=== PATIENT | male | born 1940 | race Caucasian/White ===

== ENCOUNTER 2017-08-27 06:40 | Day surgery (SDC) | payer MEDICARE, BC ==
[~2017-08-27] VITALS: Ht 167.6 cm; Wt 83.5 kg
[~2017-08-27 06:40] MED LIST: FLUSAL1005 IH; Icaps Areds Fo1 EACH; MAGOXI400; NAPR220; TAMS.4ER; VITAMIN D32000 UNIT PO
== END 2017-08-27 09:39 | disposition home or self-care (01) ==
LOC: ORSCSDS 06:40
PROVIDERS: Orthopaedic Surgery
PROC: 01S40ZZ Reposition Ulnar Nerve, Open Approach (ICD-10-PCS; principal; 2017-08-27 08:00)
DX: G56.22 Lesion of ulnar nerve, left upper limb (principal); Z87.891 Personal history of nicotine dependence
CPT/HCPCS: J0690; J1100; J2250; J2370; J2405; J3010

== ENCOUNTER 2018-08-25 12:28 | Inpatient (IN) | payer MEDICARE, BC ==
[~2018-08-25] VITALS: Ht 167.6 cm; Wt 90.9 kg
[~2018-08-25 12:28] MED LIST changes: -NAPR220; +NAPR220 PO
[2018-08-25 12:58] LABS: BASOPHILS ABSOLUTE AUTO 0.03 K/mm3 (0.00-0.23); BASOPHILS PERCENT AUTO 1 % (0-2); EOSINOPHILS ABSOLUTE AUTO 0.26 K/mm3 (0.00-0.68); EOSINOPHILS PERCENT AUTO 5 % (0-6); Hematocrit 43.1 % (37.0-53.0); Hemoglobin 14.1 g/dL (13.5-17.5); IMMATURE GRAN ABSOLUTE AUTO 0.04 K/mm3 (0.00-0.10); IMMATURE GRAN PERCENT AUTO 1 % (0-1); LYMPHOCYTES ABSOLUTE AUTO 1.24 K/mm3 (0.84-5.20); LYMPHOCYTES PERCENT AUTO 21 % (21-46); MONOCYTES ABSOLUTE AUTO 0.34 K/mm3 (0.16-1.47); MONOCYTES PERCENT AUTO 6 % (4-13); Mean Corpuscular HGB 29.3 pg (26.0-34.0); Mean Corpuscular HGB Conc 32.7 g/dL (31.5-36.5); Mean Corpuscular Volume 90 fL (80-100); Mean Platelet Volume 9.5 fL (9.1-12.4); NEUTROPHILS ABSOLUTE AUTO 3.89 K/mm3 (1.96-9.15); NEUTROPHILS PERCENT AUTO 67 % (41-73); Platelet Count 188 K/mm3 (150-400); RDW Coefficient Variation 12.4 % (11.7-14.2); RDW Standard Deviation 41.1 fL (35.1-46.3); Red Blood Cell Count 4.81 M/mm3 (4.30-5.90)
[2018-08-25 13:26] LABS: Alanine Aminotransfer (ALT/SGP 20 U/L (12-78); Albumin, Blood 3.6 g/dL (3.4-5.0); Albumin/Globulin Ratio 1.1 (0.8-1.8); Alk Phos 100 U/L (50-136); Anion Gap 5 mmol/L (6-16); Aspartate Aminotrans (AST/SGOT 17 U/L (12-37); Bilirubin, Total 0.4 mg/dL (0.1-1.0); Blood Urea Nitrogen 27 mg/dL (8-24); Bun/Creatinine Ratio 27.1 (12.0-20.0); CO2, Blood 28 mmol/L (21-32); Calcium, Blood 8.2 mg/dL (8.5-10.1); Chloride, Blood 106 mmol/L (98-108); Globulin, Blood 3.2 g/dL (2.2-4.0); Glomerular Filtration Rate >60 (60-); Glucose, Blood 191 mg/dL (70-99); Potassium, Blood 4.4 mmol/L (3.5-5.5); Sodium, Blood 139 mmol/L (136-145); Total Protein, Blood 6.8 g/dL (6.4-8.2); Troponin I <0.015 ng/mL (0.000-0.040)
[2018-08-25 13:32] LABS: International Normalized Ratio 0.97; Prothrombin Time Results 10.3 Sec (9.7-11.5)
[2018-08-25] MEDS ORDERED: ROSU10TA PO (14:46)
[2018-08-25] MEDS ORDERED: METO25 PO (14:48)
[2018-08-25] MEDS ORDERED: Magnesium500 M1 PO (14:49)
[2018-08-25] MEDS ORDERED: VITAMIN D-32000 UNIT PO (14:49)
[2018-08-25] MEDS ORDERED: ASPI81CH PO (14:49)
[2018-08-25] MEDS ORDERED: VIT1CAPS12 PO (14:50)
--- NOTE | 2018-08-25 15:24 | NUR ---
Permission to access Patient gave this student RN permission to access chart.
--- NOTE | 2018-08-25 19:30 | NUR ---
ASSUMING CARE OF PT AT THIS TIME. PT REPORT RECEIVED VIA TELEPHONE WITH OFFGOING ED NURSE. WAITTING FOR ROOM TO BE CLEANED. WAITING FOR PT TRANSFER AT THIS TIME.
--- NOTE | 2018-08-25 19:50 | NUR ---
PT TRANSFERRED FROM ED TO PCU AT THIS TIME.
--- NOTE | 2018-08-25 20:00 | NUR ---
ASSESSMENT PT CALM, QUIET, COOPERATIVE, RESPODNS TO VERBAL STIMULI, SPONT OPENS EYES, COMMUNICATES NEEDS, A&O X4, FOLLOWS COMMANDS. SENSATION INTACT. DENIES N/T. PT TARIQ. NORMAL STRENGH BUE'S. PT C/O SLIGHT WEAKNESS BLE'S. 1P SBA WITH AMBULATION. PT TURNS SELF IN BED. PT DENIES PAIN/DISCOMFORT. NO S/SX OF PAIN/DISCOMFORT NOTED. LUNGS CLEAR, LOWER LOBES DIMINISHED. SHALLOW BREATHING. PT ON RA. OXY SAT >95%. RR 18. DENIES SOB. NO COUGHING. NSR WITH OCC PAC'S. HR 70'S. BP STABLE - SEE VS FS. DENIES CP. HEPARIN DRIP AT 13 UNITS/KG/HR AT A DOSING WEIGHT 75 KG AT 19.5 ML/HR. STRONG PULSES. WARM, PINK SKIN. ACTIVE BT X4 QUADRANTS. ABD MILD DIST (PT STATES ABD DIST IS NORMAL), SOFT, NONTENDER. NO N/V. LAST REPORTED BM 08/25/17. PT HAS HX OF INCONTIENCE. URINAL AT BEDSIDE - CLEAR, YELLOW URINE NOTED. PIV X1.
--- NOTE | 2018-08-25 23:50 | NUR ---
PHARMACY / HEPARIN DRIP INFROMED JUAN PHARMACIST THAT THERE ARE NO SCHEDULED APTT TO TITRATE HEPARIN DRIP. JUAN PLANNING TO ORDER APTT FOR AM LABS.
--- NOTE | 2018-08-26 02:15 | NUR ---
TROPONIN INFORMED DR. STEINER OF TROPONIN 1.44. PT CONT TO DENY CP. HEPARIN DRIP CONT AT 13 UNITS/KG/HR AT A DOSING WEIGHT 75 KG AT 19.5 ML/HR. UPDATED DR. STEINER OF PT'S CONDITION. NO NEW ORDERS AT THIS TIME. ROUTINE CARDIO CONSULT FOR DR. ANDRADE CALLED BY ED.
[2018-08-26 04:16] LABS: BASOPHILS ABSOLUTE AUTO 0.04 K/mm3 (0.00-0.23); BASOPHILS PERCENT AUTO 1 % (0-2); EOSINOPHILS ABSOLUTE AUTO 0.27 K/mm3 (0.00-0.68); EOSINOPHILS PERCENT AUTO 5 % (0-6); Hematocrit 39.9 % (37.0-53.0); Hemoglobin 13.1 g/dL (13.5-17.5); IMMATURE GRAN ABSOLUTE AUTO 0.01 K/mm3 (0.00-0.10); IMMATURE GRAN PERCENT AUTO 0 % (0-1); LYMPHOCYTES PERCENT AUTO 29 % (21-46); MONOCYTES ABSOLUTE AUTO 0.39 K/mm3 (0.16-1.47); MONOCYTES PERCENT AUTO 8 % (4-13); Mean Corpuscular HGB 28.9 pg (26.0-34.0); Mean Corpuscular HGB Conc 32.8 g/dL (31.5-36.5); Mean Corpuscular Volume 88 fL (80-100); Mean Platelet Volume 9.3 fL (9.1-12.4); NEUTROPHILS PERCENT AUTO 57 % (41-73); Platelet Count 164 K/mm3 (150-400); RDW Coefficient Variation 12.4 % (11.7-14.2); RDW Standard Deviation 40.3 fL (35.1-46.3); Red Blood Cell Count 4.54 M/mm3 (4.30-5.90); White Blood Cell Count 5.11 K/mm3 (4.00-11.30)
[2018-08-26 04:41] LABS: Magnesium, Blood 2.3 mg/dL (1.6-2.4); Very Low Density Lipoprot Chol 13 mg/dL (6-32)
[2018-08-26 04:50] LABS: Alanine Aminotransfer (ALT/SGP 16 U/L (12-78); Albumin, Blood 3.2 g/dL (3.4-5.0); Albumin/Globulin Ratio 1.1 (0.8-1.8); Alk Phos 91 U/L (50-136); Anion Gap 6 mmol/L (6-16); Aspartate Aminotrans (AST/SGOT 21 U/L (12-37); Bilirubin, Total 0.8 mg/dL (0.1-1.0); Blood Urea Nitrogen 23 mg/dL (8-24); Bun/Creatinine Ratio 22.5 (12.0-20.0); CHOL/HDL RATIO 2.3; CO2, Blood 26 mmol/L (21-32); Chloride, Blood 110 mmol/L (98-108); Cholesterol 97 mg/dL (50-200); Creatinine, Blood 1.02 mg/dL (0.60-1.20); Globulin, Blood 2.9 g/dL (2.2-4.0); Glomerular Filtration Rate >60 (60-); Glucose, Blood 100 mg/dL (70-99); HDL Cholesterol 43 mg/dL (>39); LDL/HDL RATIO 0.9; Low Density Lipoprotein Chol 41 mg/dL (0-110); Potassium, Blood 4.1 mmol/L (3.5-5.5); Sodium, Blood 142 mmol/L (136-145); Total Protein, Blood 6.1 g/dL (6.4-8.2); Triglycerides 67 mg/dL (30-160)
--- NOTE | 2018-08-26 05:40 | NUR ---
SHIFT ASSESSMENT NO ACUTE CHANGES NOTED T/O SHIFT. PT TRANSFERRED FROM ED TO PCU THIS SHIFT. PT SLEPT T/O SHIFT. PT CALM, QUIET, COOPERATIVE, RESPONDS TO VERBAL STIMULI, SPONT OPENS EYES, COMMUNICATES NEEDS, A&O X4, FOLLOWS COMMANDS. SENSATION INTACT. DENIES N/T. PT TARIQ. NORMAL STRENGTH BUE'S. PT C/O SLIGHT WEAKNESS BLE'S. 1P SBA WITH AMBULATION. PT TURNS SELF IN BED. PT DENIED PAIN/DISCOMFORT. NO S/SX OF PAIN/DISCOMFORT. LUNGS CLEAR, LOWER LOBES DIMINISHED. SHALLOW BREATHING. PT ON RA. OXY SAT >90%. RR 12 TO 18. DENIES SOB. NO COUGHING. AFEBRILE. SB TO NSR WITH OCC PAC'S. HR 50'S TO 70'S. BP STABLE - SEE VS FS. DENIES CP. HEPARIN DRIP AT 14 UNITS/KG/HR AT A DOSING WEIGHT 75 KG AT 21 ML/HR. STRONG PULSES. WARM, PINK SKIN. ACTIVE BT X4 QUADRATNS. ABD MILD DIST (PT STATES ABD DIST IS NORMAL), SOFT, NONTENDER. NO N/V. NO BM T/O SHIFT. LAST REPORTED BM 08/25/17. PT HAS HX OF INCONTIENCE. PT USES URINAL WITHOUT ASSISTANCE - CLEAR, YELLOW URINE NOTED. PIV X1. WILL CONT TO MONITOR PT AND WILL PROVIDE BEDSIDE REPORT TO ONCOMING NURSE THIS AM.
--- NOTE | 2018-08-26 08:40 | NUR ---
INITIAL ASSESSMENT: Pt resting in bed. Denies chest pain at this time. States "i feel fine and hope to go home". Told Pt this all depends on his tests and the physicians discussion with him. LS clear. HR reg. BT positive. Pulses palp. VSS. Pt denies needs. Call light in reach. Will monitor.
--- NOTE | 2018-08-26 09:55 | NUR ---
Echocardiogram completed.
--- NOTE | 2018-08-26 10:04 | NUR ---
UPDATE: Pt spoke with Corrections Nurse Dr. Molina. Plan for angiogram this afternoon. Pt denies questions at this time. at bedside.
--- NOTE | 2018-08-26 14:00 | NUR ---
UPDATE PT TAKEN TO [facility]. WILL AWAIT RETURN.
--- NOTE | 2018-08-26 15:30 | NUR ---
UPDATE: Pt returned to room from heart center with L TR site. No bleeding, swelling, hematoma noted. VSS. Pt denies needs. Call light in reach. Will monitor.
--- NOTE | 2018-08-26 18:06 | NUR ---
Shift Summary: Pt sitting up in bed eating dinner. VSS. 2cc air removed from L TR band site. No s/s of bleeding, swelling, bruising, hematoma noted. Pt states that his L fingers are cool but not numb. Cap refil <3 sec. Pt has done will this shift. Had and angiogram this afternoon (see report). Pt and were informed of resultes. Pt anxious to be discharged tomorrow. VSS throughout shift. L wrist site stable. Call light in reach. WIll report to night rn.
--- NOTE | 2018-08-26 20:31 | NUR ---
PM NOTE. ASSUMED CARE OF PT APROX 1900. PT IS A&Ox4 PLEASENT AND COOPERATIVE WITH CARE, PT IS S/P ANGIO WITH NO INTERVENTIONS/SENTS PLACED. PT HAD CABG IN 07/08, NEW GRAFTS ARE CLEAR PER PROVIDER. LEFT WRIST TR BAND IS INTACT, 11 MLS FIRST INSTILLED, PER DAY SHIFT RN 6MLS HAVE BEEN REMOVED SO FAR, NO HEMATOMA NOTED AT SITE, NO REDNESS OR BLEEDING, PT DENIES PAIN, NUMBNESS OR TINGLING TO HIS LEFT HAND/FINGERS. GOOD RAIDAL PULSE AND CAP REFILL IS <3 SECONDS. TELE INTACT, NSR W/FIRST DEGREE AND PVCS IN THE 60'S PER CHAPERONE. PT'S BP 131/79. NO EDEMA NOTED ON ASSESSMENT. L/S CLEAR T/O AND DIM IN THE BASES. BT PRESENT AND HYPERACTIVE, ABD IS SOFT AND NONTENDER TO PALP. CALL LIGHT IN REACH, BED IS LOCKED AND LOW WILL CONTINUE TO MONITOR.
--- NOTE | 2018-08-27 05:16 | NUR ---
SHIFT SUMMARY. NO ACUTE CHANGES NOTED THIS SHIFT. PT'S VS HAVE BEEN STABLE T/O SHIFT. PT DENIES ANY CHEST PAIN/PRESSURE, N/V OR SOB. LEFT RADIAL SITE IS C/D/I, TR BAN WAS REMOVED AT 2330 WITH NO BLEEDING OR HEMATOMA NOTED. AREA WAS CLEANED W/ALCOHOL WIPE AND TEGADERM WAS PLACED OVER THE SITE. PT'S LEFT RADIAL PULSE IS PRESENT AND STRONG. CALL LIGHT IN REACH, BED IS LOCKED AND LOW WILL CONTINUE TO MONITOR UNTIL REPORT IS GIVEN TO ONCOMING RN.
--- NOTE | 2018-08-27 07:35 | NUR ---
INITIAL ASSESSMENT: Pt resting in bed. Wakes to verbal stimulus. Denies C/P, pain, numbness, SOB. States that he feels good and wants to go home. LS diminished in bases. BT posisitve. HR reg. Pulses palp. L wrist site with tegaderm intact. No bleeding, swelling, oozing, hematoma noted. Awaiting physician rounding. VSS Call light in reach. Will monitor.
[2018-08-27] MEDS ORDERED: CLOP75 PO (10:22)
[2018-08-27] MEDS ORDERED: ATOR40TA PO (10:23)
[2018-08-27] MEDS ORDERED: Isosorbide Mono30 MG PO (10:24)
--- NOTE | 2018-08-27 11:14 | NUR ---
DISCHARGE: Pt was given verbal and written discharge instructions. Denies questions, verbalized understanding. IV discontinued, cath intact. Rx were called to [facility] per pt request. Ambulated out with RN. Stable at time of discharge.
== END 2018-08-27 10:50 | disposition home or self-care (01) | DRG 282 ==
LOC: ER 12:28 → PCU 18:07
PROVIDERS: Physician Assistant; ADMIT Internal Medicine
PROC: B2111ZZ Fluoroscopy of Multiple Coronary Arteries using Low Osmolar Contrast (ICD-10-PCS; principal; 2018-08-26)
DX: I21.4 Non-ST elevation (NSTEMI) myocardial infarction (principal); Z95.1 Presence of aortocoronary bypass graft; F17.290 Nicotine dependence, other tobacco product, uncomplicated; I25.10 Atherosclerotic heart disease of native coronary artery without angina pectoris; E78.5 Hyperlipidemia, unspecified; K21.9 Gastro-esophageal reflux disease without esophagitis; M79.7 Fibromyalgia; M19.90 Unspecified osteoarthritis, unspecified site; J30.2 Other seasonal allergic rhinitis; Z79.02 Long term (current) use of antithrombotics/antiplatelets; Z79.82 Long term (current) use of aspirin
CPT/HCPCS: 36415; 71046; 80053; 80061; 83735; 83880; 84484; 85025; 85610; 85730; 93005; 93010; 93308; 93321; 93459; 96365; 99152; 99153; 99285-25; C1769; C1894; J1644; J2250; J3010; J7030; Q9967

== ENCOUNTER 2021-07-20 07:19 | Day surgery (SDC) | payer MEDICARE, BC ==
[~2021-07-20] VITALS: Ht 167.6 cm; Wt 99.8 kg
[~2021-07-20 07:19] MED LIST changes: +ASPI81CH PO; +ATOR40TA PO; +CLOP75 PO; +Isosorbide Mono30 MG PO; +METO25 PO; +Magnesium500 M1 PO; +ROSU10TA PO; +VIT1CAPS12 PO; +VITAMIN D-32000 UNIT PO
--- NOTE | 2021-07-20 07:43 | NUR ---
07/20/21 0743 Aleena Veliz CALL LIGHT WITHIN REACH
== END 2021-07-20 09:15 | disposition home or self-care (01) ==
LOC: ORSCSDS 07:19
PROVIDERS: Ophthalmology
PROC: 08RJ3JZ Replacement of Right Lens with Synthetic Substitute, Percutaneous Approach (ICD-10-PCS; principal; 2021-07-20 08:30)
DX: H25.11 Age-related nuclear cataract, right eye (principal); H21.81 Floppy iris syndrome; I25.10 Atherosclerotic heart disease of native coronary artery without angina pectoris; G47.33 Obstructive sleep apnea (adult) (pediatric); K21.9 Gastro-esophageal reflux disease without esophagitis; M79.7 Fibromyalgia; Z87.891 Personal history of nicotine dependence; Z79.899 Other long term (current) drug therapy; Z79.82 Long term (current) use of aspirin; E66.9 Obesity, unspecified; Z68.35 Body mass index [BMI] 35.0-35.9, adult
CPT/HCPCS: J2001; J2250; J3010; J3301; J7040; V2632

== ENCOUNTER 2021-08-03 10:08 | Day surgery (SDC) | payer MEDICARE, BC ==
[~2021-08-03] VITALS: Ht 167.6 cm; Wt 99.2 kg
[2021-08-03] MEDS ORDERED: CLOP75 PO (11:15)
--- NOTE | 2021-08-03 11:21 | NUR ---
08/03/21 1121 Aleena Veliz CALL LIGHT WITHIN REACH. TETRA DROPS AT 1113 PLEDGET AT 1117
--- NOTE | 2021-08-03 12:23 | NUR ---
08/03/21 1223 Lizbet Root 1% XYLOCAINE PF 1CC INJECTED BY AT [facility].OF CASE
== END 2021-08-03 12:51 | disposition home or self-care (01) ==
LOC: ORSCSDS 10:08
PROVIDERS: Ophthalmology
PROC: 08RK3JZ Replacement of Left Lens with Synthetic Substitute, Percutaneous Approach (ICD-10-PCS; principal; 2021-08-03 11:30)
DX: H25.12 Age-related nuclear cataract, left eye (principal); E66.9 Obesity, unspecified; Z68.35 Body mass index [BMI] 35.0-35.9, adult; Z79.82 Long term (current) use of aspirin; Z79.899 Other long term (current) drug therapy
CPT/HCPCS: J2001; J2250; J3010; J3301; J7040; V2632

== ENCOUNTER → 2023-10-22 | Outpatient (CLI) | payer MEDICARE, BC ==
[~2023-10-22] MED LIST changes: +CIPRODEX OTIC7.5 M1 RIGHTEAR; +Cipro500 MG PO
== END | disposition home or self-care (01) ==
LOC: LAB 12:15 → LAB SHORT 12:15
DX: R23.4 Changes in skin texture (principal)
CPT/HCPCS: 88305; 88312